=== PATIENT | female | born 1975 | race American Indian/Alaskan Native ===

== ENCOUNTER 2017-12-29 00:59 | Emergency (ER) | payer MEDICAID ==
[2017-12-29 02:31] VITALS: BP 132/82
--- NOTE | 2017-12-29 05:08 | Emergency Department Report ---
ED Extremity Problem HPI - General Chief complaint: Extremity Problem,Nontraumatic Stated complaint: LT ARM/NECK PAIN Time Seen by Provider: 12/29/17 04:22 Source: patient Mode of arrival: Ambulatory Limitations: No Limitations - History of Present Illness Initial comments: 42-year-old female past medical history none presents with complaint of one month of left sided wrist pain and neck pain radiating down left arm worse with movement of the neck. Patient denies fevers chills neck rigidity photophobia or phonophobia and nausea vomiting. States that her symptoms worsen at the end of the day. Has been ongoing for more than a month and a half. States that when she flexes and extends her neck she feels slight tingling that radiates from the shoulder down to her fingers. Also states that when she flexes her left wrist she gets pain and tingling in her first 3 fingers. Patient denies any direct trauma to either area. Patient states that she recalls approximately a month and a half ago going to hair salon and having her neck bent in an awkward position while having her hair done and experiencing pain afterward. Patient patient denies any associated diaphoresis shortness of breath palpitations chest pain nausea or vomiting. Last menstrual period 2017. Complaint: extremity pain Onset/Timin -: days(s) Location: left Severity scale (0 -10): 5 Quality: aching Consistency: intermittent Improves with: immobilization Worsens with: exertion Associated Symptoms: denies other symptoms - Related Data Previous Rx's Medication Instructions Recorded Last Taken Type Acetaminophen/Codeine [Tylenol 1 tab PO Q6H PRN #8 tab 12/29/17 Unknown Rx /Codeine # 3 tab] Ibuprofen [Motrin] 800 mg PO Q8HR PRN #25 tablet 12/29/17 Unknown Rx Allergies Allergy/AdvReac Type Severity Reaction Status Date / Time No Known Allergies Allergy Verified 12/29/17 02:24 ED Review of Systems ROS: Stated complaint: LT ARM/NECK PAIN Other details as noted in HPI Constitutional: denies: chills, fever Eyes: denies: eye pain, eye discharge, vision change ENT: denies: ear pain, throat pain Respiratory: denies: cough, shortness of breath, wheezing Cardiovascular: denies: chest pain, palpitations Endocrine: no symptoms reported Gastrointestinal: denies: abdominal pain, nausea, diarrhea Genitourinary: denies: urgency, dysuria, discharge Musculoskeletal: as per HPI, arthralgia. denies: back pain, joint swelling Skin: denies: rash, lesions Neurological: denies: headache, weakness, paresthesias Psychiatric: denies: anxiety, depression Hematological/Lymphatic: denies: easy bleeding, easy bruising ED Past Medical Hx - Past Medical History Previous Medical History?: No - Surgical History Past Surgical History?: No - Social History Smoking Status: Current Every Day Smoker - Medications Home Medications: Home Medications Medication Instructions Recorded Confirmed Last Taken Type Acetaminophen/Codeine [Tylenol 1 tab PO Q6H PRN #8 tab 12/29/17 Unknown Rx /Codeine # 3 tab] Ibuprofen [Motrin] 800 mg PO Q8HR PRN #25 tablet 12/29/17 Unknown Rx ED Physical Exam - General Limitations: No Limitations General appearance: alert, in no apparent distress - Head Head exam: Present: atraumatic, normocephalic - Eye Eye exam: Present: normal appearance, PERRL, EOMI - ENT ENT exam: Present: mucous membranes moist - Neck Neck exam: Present: normal inspection, full ROM (neck flexion and extension intact) - Respiratory Respiratory exam: Present: normal lung sounds bilaterally. Absent: respiratory distress - Cardiovascular Cardiovascular Exam: Present: regular rate, normal rhythm. Absent: systolic murmur, diastolic murmur, rubs, gallop - GI/Abdominal GI/Abdominal exam: Present: soft, normal bowel sounds - Extremities Exam Extremities exam: Present: normal inspection - Expanded Upper Extremity Exam Left Shoulder Exam: Present: normal inspection, full ROM (shoulder abduction and abduction and internal and external rotation clinically intact) Upper Arm exam: Present: normal inspection, full ROM Elbow exam: Present: normal inspection Forearm Wrist exam: Present: normal inspection, full ROM (wrist flexion and extension clinically intact with active and passive range of motion) Neuro motor exam: Present: wrist extension intact, thumb opposition intact, thumb IP flexion intact, thumb adduction intact, fingers 2-5 abduction intact Neurosensory exam: Present: median nerve intact (positive pain on palpation/ percussion positive Tinel sign), other (positive Phalen and Tinel sign on exam) Vascular: Present: normal capillary refill (distal capillary refill less than one second all fingers), radial pulse (radial , ulnar and brachial pulses strong to palpation), brachial pulse, ulnar pulse - Back Exam Back exam: Present: normal inspection - Neurological Exam Neurological exam: Present: alert, oriented X3, CN II-XII intact, normal gait - Expanded Neurological Exam Expanded Patient oriented to: Present: person, place, time Sensory exam: Upper Extremity Light Touch: Normal, Lower Extremity Light Touch: Normal Motor strength exam: RUE: 5, LUE: 5, RLE: 5, LLE: 5 Best Eye Response ([place]): (4) open spontaneously Best Motor Response ([place]): (6) obeys commands Best Verbal Response ([place]): (5) oriented [place] Total: 15 - Psychiatric Psychiatric exam: Present: normal affect, normal mood - Skin Skin exam: Present: warm, dry, intact, normal color. Absent: rash ED Course Vital Signs 12/29/17 02:25 Temperature 98.3 F Pulse Rate 94 H Respiratory 18 Rate Blood Pressure 132/82 O2 Sat by Pulse 100 Oximetry ED Medical Decision Making - Medical Decision Making A/P: Cervical radiculopathy, carpal tunnel syndrome 1-left wrist splint 2-Motrin when necessary, short course of analgesics 3-I advised patient it is important to follow up with outpatient orthopedics. As patient has been experiencing symptoms consistent with cervical radiculopathy and refer her to outpatient orthopedics/neurosurgery 4-vital signs stable for discharge. Patient has no associated symptoms suggestive of cardiac chest pain Critical care attestation.: If time is entered above; I have spent that time in minutes in the direct care of this critically ill patient, excluding procedure time. ED Disposition Clinical Impression: Carpal tunnel syndrome of left wrist, Cervical radicular pain Disposition: TO HOME OR SELFCARE Is pt being admited?: No Does the pt Need Aspirin: No Condition: Stable Instructions: Cervical Radiculopathy (ED), Carpal Tunnel Syndrome (ED) Prescriptions: Acetaminophen/Codeine [Tylenol /Codeine # 3 tab] 1 tab PO Q6H PRN #8 tab PRN Reason: Pain , Severe (7-10) Ibuprofen [Motrin] 800 mg PO Q8HR PRN #25 tablet PRN Reason: Pain , Severe (7-10) Referrals: DOROTHY ROA [Primary Care Provider] - 3-5 Days HOA MANN MD [Staff Physician] - 3-5 Days CAROLINE KWAN MD [Staff Physician] - 3-5 Days [facility] [Provider Group] - 3-5 Days Forms: Accompanied Note, Work/School Release Form(ED) Time of Disposition: 05:10
[2017-12-29] MEDS ORDERED: MOTRIN PO ONE (05:13)
== END 2017-12-29 05:25 | disposition home or self-care (01) ==
LOC: ED 00:59
DX: G56.02 Carpal tunnel syndrome, left upper limb (principal); F17.200 Nicotine dependence, unspecified, uncomplicated